=== PATIENT | male | born 2000 | race American Indian/Alaskan Native ===

== ENCOUNTER 2021-09-14 05:30 | Emergency (ER) | payer OTHER ==
[2021-09-14] MEDS ORDERED: ONDANSETRON 4 MG ODT TAB PO ONE (05:46)
[2021-09-14] MEDS ORDERED: HYDROcodone/ACETAMINOPHEN 7.5-325MG TAB PO ONE (05:46)
--- NOTE | 2021-09-14 06:16 | XRay Report ---
RIGHT ANKLE 3 VIEW(S) INDICATION / CLINICAL INFORMATION: RIGHT ANKLE PAIN COMPARISON: None available. FINDINGS: BONES / JOINT(S): Nondisplaced oblique fracture through the base of the medial malleolus. No signific ant arthritis. Moderate ankle joint effusion. SOFT TISSUES: Mild medial soft tissue swelling. ADDITIONAL FINDINGS: None. Signer Name: Siri Gooden MD Signed: 09/14/2021 6:11 AM Workstation Name: [id number]
--- NOTE | 2021-09-14 06:17 | XRay Report ---
RIGHT FOOT 3 VIEW(S) INDICATION / CLINICAL INFORMATION: RIGHT ANKLE PAIN with right foot pain. COMPARISON: None available. FINDINGS: BONES / JOINT(S): No acute fracture or subluxation. No significant arthritis. SOFT TISSUES: No significant abnormality. ADDITIONAL FINDINGS: None. Signer Name: Siri Gooden MD Signed: 09/14/2021 6:12 AM Workstation Name: [id number]
--- NOTE | 2021-09-14 06:20 | Emergency Department Report ---
ED Lower Extremity HPI - General Chief Complaint: Extremity Injury, Lower Stated Complaint: RIGHT FOOT PAIN Source: patient Mode of arrival: Ambulatory Limitations: No Limitations - History of Present Illness Initial Comments: Patient is a 21-year-old -Martiniquais male with no past medical history who presents to the ED with complaint of acute onset persistent severe right ankle pain and swelling after he twisted his right ankle while running in the house and fell down about 2 hours ago. Patient states that he is unable to bear weight on the right ankle and foot because of worsening pain. Patient stated that he took ibuprofen prior to arrival in the ED for pain but that did not help. Patient denies head or neck injuries, back pain, nausea and vomiting, chest pain, shortness of breath, syncope, dizziness, seizures, numbness and tingling or weakness of right leg. MD Complaint: ankle injury (Right ankle pain and swelling) -: Sudden, hour(s) (2) Injury: Ankle: Right (Pain and swelling) Type of Injury: eversion Place: home Severity: severe Severity scale (0 -10): 8 Improves With: nothing Worsens With: weight bearing, movement, palpation Context: fall Associated Symptoms: swelling, able to partially bear weight. denies: numbness, tingling, unable to bear weight Treatments Prior to Arrival: NSAIDS - Related Data Previous Rx's Medication Instructions Recorded Last Taken Type Ibuprofen [Motrin] 800 mg PO Q8HR PRN #30 tablet 09/14/21 Unknown Rx traMADoL [Ultram] 50 mg PO Q6HR PRN #12 tablet 09/14/21 Unknown Rx Allergies Allergy/AdvReac Type Severity Reaction Status Date / Time No Known Allergies Allergy Unverified 09/14/21 05:41 ED Review of Systems ROS: Stated complaint: RIGHT FOOT PAIN Other details as noted in HPI Constitutional: denies: chills, fever Eyes: denies: eye pain, eye discharge, vision change ENT: denies: ear pain, throat pain Respiratory: denies: cough, shortness of breath, wheezing Cardiovascular: denies: chest pain, palpitations Endocrine: no symptoms reported Gastrointestinal: denies: abdominal pain, nausea, diarrhea Genitourinary: denies: urgency, dysuria Musculoskeletal: joint swelling (Right ankle swelling), arthralgia (Right ankle and foot pain). denies: back pain Skin: denies: rash, lesions Neurological: denies: headache, weakness, paresthesias Psychiatric: denies: anxiety, depression Hematological/Lymphatic: denies: easy bleeding, easy bruising ED Past Medical Hx - Past Medical History Previous Medical History?: No - Surgical History Past Surgical History?: No - Social History Smoking Status: Current Every Day Smoker Substance Use Type: Marijuana - Medications Home Medications: Home Medications Medication Instructions Recorded Confirmed Last Taken Type Ibuprofen [Motrin] 800 mg PO Q8HR PRN #30 tablet 09/14/21 Unknown Rx traMADoL [Ultram] 50 mg PO Q6HR PRN #12 tablet 09/14/21 Unknown Rx ED Physical Exam - General Limitations: No Limitations General appearance: alert, in no apparent distress - Head Head exam: Present: atraumatic, normocephalic, normal inspection - Eye Eye exam: Present: normal appearance, PERRL, EOMI Pupils: Present: normal accommodation - ENT ENT exam: Present: normal exam, normal orophraynx, mucous membranes moist, TM's normal bilaterally, normal external ear exam - Neck Neck exam: Present: normal inspection, full ROM - Respiratory Respiratory exam: Present: normal lung sounds bilaterally. Absent: respiratory distress, wheezes, rales, rhonchi, chest wall tenderness, accessory muscle use, decreased breath sounds, prolonged expiratory - Cardiovascular Cardiovascular Exam: Present: regular rate, normal rhythm, normal heart sounds. Absent: systolic murmur, diastolic murmur, rubs, gallop - GI/Abdominal GI/Abdominal exam: Present: soft, normal bowel sounds. Absent: tenderness, guarding, rebound, hyperactive bowel sounds, hypoactive bowel sounds, organomegaly - Extremities Exam Extremities exam: Present: normal inspection, full ROM, tenderness (Palpable right ankle tenderness and swelling with limited range of motion due to pain), normal capillary refill, joint swelling. Absent: pedal edema, calf tenderness - Back Exam Back exam: Present: normal inspection, full ROM. Absent: tenderness, CVA tenderness (R), CVA tenderness (L), muscle spasm, paraspinal tenderness, vertebral tenderness - Neurological Exam Neurological exam: Present: alert, oriented X3, CN II-XII intact, normal gait, reflexes normal - Psychiatric Psychiatric exam: Present: normal affect, normal mood - Skin Skin exam: Present: warm, dry, intact, normal color. Absent: rash ED Course Vital Signs 09/14/21 09/14/21 05:50 06:11 Temperature 98.6 F Pulse Rate 88 Respiratory 18 18 Rate Blood Pressure 133/78 [Right] O2 Sat by Pulse 100 Oximetry ED Lower Extremity MDM - Radiology Data Radiology results: report reviewed, image reviewed [address] [address] XRay Report Signed Patient: BRONSON BRONSON MR#: [id number] : 2000 Acct:[id number] Age/Sex: 21 / M ADM Date: 09/14/21 Loc: ED Attending Dr: Ordering Physician: SILVIA BALLESTEROS MD Date of Service: 09/14/21 Procedure(s): XR foot 3+V RT Accession Number(s): [id number] cc: SILVIA BALLESTEROS MD Fluoro Time In Minutes: RIGHT FOOT 3 VIEW(S) INDICATION / CLINICAL INFORMATION: RIGHT ANKLE PAIN with right foot pain. COMPARISON: None available. FINDINGS: BONES / JOINT(S): No acute fracture or subluxation. No significant arthritis. SOFT TISSUES: No significant abnormality. ADDITIONAL FINDINGS: None. Signer Name: Siri Gooden MD Signed: 09/14/2021 6:12 AM Workstation Name: [id number] Transcribed By: DT Dictated By: Nicolas Gooden MD Electronically Authenticated By: Nicolas Gooden MD Signed Date/Time: 09/14/21611 DD/ 0 TD/TT: [address] [address] XRay Report Signed Patient: BRONSON BRONSON MR#: [id number] : 2000 Acct:[id number] Age/Sex: 21 / M ADM Date: 09/14/21 Loc: ED Attending Dr: Ordering Physician: SILVIA BALLESTEROS MD Date of Service: 09/14/21 Procedure(s): XR foot 3+V RT Accession Number(s): [id number] cc: SILVIA BALLESTEROS MD Fluoro Time In Minutes: RIGHT FOOT 3 VIEW(S) INDICATION / CLINICAL INFORMATION: RIGHT ANKLE PAIN with right foot pain. COMPARISON: None available. FINDINGS: BONES / JOINT(S): No acute fracture or subluxation. No significant arthritis. SOFT TISSUES: No significant abnormality. ADDITIONAL FINDINGS: None. Signer Name: Siri Gooden MD Signed: 09/14/2021 6:12 AM Workstation Name: [id number] Transcribed By: DT Dictated By: Nicolas Gooden MD Electronically Authenticated By: Nicolas Gooden MD Signed Date/Time: 09/14/21611 DD/ 0 TD/TT: Print Print - Medical Decision Making This is a 21-year-old -Martiniquais male with no past medical history who presents to the ED with complaint of acute onset persistent severe right ankle pain and swelling after he twisted his right ankle while running in the house and fell down about 2 hours ago. Patient states that he is unable to bear weight on the right ankle and foot because of worsening pain. Patient stated that he took ibuprofen prior to arrival in the ED for pain but that did not help. In the ED, patient is alert and oriented x3 and is not in any distress but appears to be in pain. Patient was treated for pain in the ED and right ankle x-ray showed no acute fractures or subluxations. Right foot x-ray also showed no acute fractures or subluxations. The patient right ankle and foot was splinted with Lawson wrap and the patient also fitted with crutches to aid in ambulation. On reevaluation, patient is neurovascularly intact on the right ankle and right foot, and the distal pulses are palpable. Patient was discharged home on pain medications and muscle relaxants and advised to follow- up with his primary care physician in 7 to 10 days for reevaluation or return to the ED immediately if symptoms get worse. - Differential Diagnosis Ankle fracture; ankle sprain; muscle strain; foot contusion Critical care attestation.: If time is entered above; I have spent that time in minutes in the direct care of this critically ill patient, excluding procedure time. ED Disposition Clinical Impression: Severe sprain of right ankle Qualifiers: Encounter type: initial encounter Qualified Code(s): S93.401A - Sprain of uns pecified ligament of right ankle, initial encounter Muscle strain of right foot Qualifiers: Encounter type: initial encounter Qualified Code(s): S96.911A - Strain of unspecified muscle and tendon at ankle and foot level, right foot, initial encounter Disposition: HOME / SELF CARE / HOMELESS Is pt being admited?: No Does the pt Need Aspirin: No Condition: Stable Instructions: Ankle Sprain, [id number], Muscle Strain, [id number] Additional Instructions: Right ankle and right foot x-rays showed no acute fractures or subluxations. Therefore take medications with food, drink plenty of fluids, and follow-up with your primary care physician in 7 to 10 days for reevaluation. Return to the ER immediately if symptoms get worse. Prescriptions: Ibuprofen [Motrin] 800 mg PO Q8HR PRN #30 tablet PRN Reason: Pain , Severe (7-10) traMADoL [Ultram] 50 mg PO Q6HR PRN #12 tablet PRN Reason: Pain Referrals: [facility] [Provider Group] - 7-10 days Time of Disposition: 06:22 Print Language: ZIMBABWE[place]
[2021-09-14 06:51] VITALS: BP 129/77
== END 2021-09-14 07:00 | disposition home or self-care (01) ==
LOC: ED 05:30
DX: S93.401A Sprain of unspecified ligament of right ankle, initial encounter (principal); S96.911A Strain of unspecified muscle and tendon at ankle and foot level, right foot, initial encounter; F12.90 Cannabis use, unspecified, uncomplicated; F17.200 Nicotine dependence, unspecified, uncomplicated; X58.XXXA Exposure to other specified factors, initial encounter; Y93.89 Activity, other specified; Y92.89 Other specified places as the place of occurrence of the external cause; Y99.8 Other external cause status
CPT/HCPCS: 99284; J3490; Q0162